=== PATIENT | female | born 1940 | race Caucasian/White ===

== ENCOUNTER 2023-02-26 10:21 | Emergency (ER) | payer OTHER ==
[~2023-02-26] VITALS: Ht 154.9 cm; Wt 52.3 kg
[2023-02-26 10:38] VITALS: TEMP 99.3
[2023-02-26 10:40] VITALS: BP 118/66; PULSE 104; RESP 18
[2023-02-26] MEDS ORDERED: SODIUM CHLORIDE 0.9% 1,000 ML IV ONE (11:30)
[2023-02-26 11:53] LABS: BASOPHILS % (AUTO) 0.6 % (0.0-2.0); EOSINOPHILS % (AUTO) 0.7 % (1.0-6.0); HEMATOCRIT 37.5 % (36-46); HEMOGLOBIN 12.6 g/dL (12.0-16.0); LYMPHOCYTES # (AUTO) 1.2 K/uL (1.0-4.8); LYMPHOCYTES % (AUTO) 16.4 % (22.0-44.0); MEAN CORPUSCULAR HEMOGLOBIN 33.8 pg (26.0-34.0); MEAN CORPUSCULAR HGB CONC 33.5 G/dL (31.0-37.0); MEAN CORPUSCULAR VOLUME 101 fL (80-100); MONOCYTES # (AUTO) 0.7 K/uL (0.1-1.0); NEUTROPHILS # (AUTO) 5.2 K/uL (1.8-7.7); NEUTROPHILS % (AUTO) 72.3 % (40.0-70.0); PLATELET COUNT (AUTO) 272 K/uL (150-450); RED BLOOD CELL COUNT(AUTO) 3.72 MIL/uL (4.00-5.20); RED CELL DISTRIBUTION WIDTH 12.6 % (11.5-14.5); WHITE BLOOD COUNT (AUTO) 7.2 K/uL (4.5-11.0)
[2023-02-26 11:55] LABS: COVID AG,FIA SOURCE NASAL SWAB
[2023-02-26 12:02] LABS: ANION GAP 8 mmol/L (8-16); CALCIUM, TOTAL 8.9 mg/dL (8.8-10.5); CARBON DIOXIDE 29 mmol/L (22-29); CHLORIDE 91 mmol/L (98-107); CREATININE 0.65 mg/dL (0.60-1.30); GLOMERULAR FILTR. RATE CALC > 60 mL/min (>60); GLUCOSE,RANDOM 98 mg/dL (70-110); SODIUM SERUM 128 mmol/L (136-145); UREA NITROGEN, BLOOD 6 mg/dL (7-18)
[2023-02-26 12:08] LABS: ALANINE AMINOTRANSFERASE 35 U/L (12-78); ALKALINE PHOSPHATASE 78 U/L (46-116); ASPARTATE AMINOTRANSFERASE 28 U/L (15-37); BILIRUBIN,TOTAL 0.2 mg/dL (0.1-1.0); TOTAL PROTEIN, SERUM 6.8 g/dL (6.4-8.2)
[2023-02-26 12:15] LABS: LACTIC ACID 0.9 mmol/L (0.4-2.0)
[2023-02-26 12:27] LABS: RBC MORPHOLOGY COMMENT ABNORMAL RBC MORPH
[2023-02-26 12:39] LABS: INFLUENZA TYPE A NEGATIVE FOR TYPE A (NEGATIVE); INFLUENZA TYPE B NEGATIVE FOR TYPE B (NEGATIVE)
[2023-02-26 12:47] LABS: SARS-COV2 (COVID) ANTIGEN,FIA Positive (Negative)
== END 2023-02-26 13:22 | disposition home or self-care (01) ==
LOC: EMS 10:25
DX: U07.1 COVID-19 (principal); Z98.890 Other specified postprocedural states
CPT/HCPCS: 99284; 96360; 71045; 87426; 80053; 83605; 85025; 87804; 36415; J7030